=== PATIENT | male | born 1955 | race Two or more races ===

== ENCOUNTER 2024-03-10 10:22 | Emergency (ER) | payer OTHER ==
[~2024-03-10] VITALS: Ht 190.5 cm; Wt 159.1 kg
[2024-03-10 10:55] VITALS: PULSE 92; RESP 12; O2SAT 98
[2024-03-10 11:30] LABS: Alanine Aminotransferase 25 U/L (7-40); Alkaline Phosphatase 87 U/L (46-116); Anion Gap 7 (5-15); BUN/Creatinine Ratio 13.9 (10.0-20.0); Blood Urea Nitrogen 21 mg/dL (9-23); Calcium 10.9 mg/dL (8.5-10.1); Carbon Dioxide 23 mmol/L (20-30); Chloride 110 mmol/L (98-107); Glucose 90 mg/dL (74-106); Magnesium 2.3 mg/dL (1.6-2.6); Potassium 4.4 mmol/L (3.5-5.1); Sodium 140 mmol/L (136-145)
[2024-03-10 11:31] LABS: Albumin 4.1 g/dL (3.2-4.8); Aspartate Aminotransferase 12 U/L (13-40); Bilirubin, Total 1.2 mg/dL (0.2-1.0); Total Protein 6.7 g/dL (5.7-8.2)
[2024-03-10 11:32] LABS: Urine Bacteria None Seen /hpf (None Seen)
[2024-03-10 11:33] LABS: Basophils # (auto) 0 10 ^3/uL (0-0.2); Basophils % (auto) 0.4 % (0.0-2.0); Eosinophils # (auto) 0.2 10 ^3/uL (0-0.8); Hemoglobin 15.2 g/dL (13.5-17.5); Lymphocytes % (auto) 11.6 % (10.0-50.0); Mean Corpuscular Hemoglobin 29.1 pg (28.0-32.0); Mean Corpuscular Hgb Conc. 33.7 g/dL (32.0-36.0); Mean Corpuscular Volume 86.3 fL (80.0-100.0); Monocytes # (auto) 0.9 10 ^3/uL (0-1.3); Monocytes % (auto) 9.9 % (0.0-12.0); Neutrophils # (auto) 6.7 10 ^3/uL (1.6-8.6); Neutrophils % (auto) 76.1 % (37.0-80.0); Nucleated Red Blood Cells % 0.1 %; Red Blood Cells 5.21 10^6/uL (4.5-5.90); Red Cell Distribution Width 14.8 % (11.8-14.3); White Blood Cell 8.7 10^3/uL (4.4-10.8)
[2024-03-10 12:01] LABS: Urine Blood 1+ /uL (Negative); Urine Clarity Clear (Clear); Urine Color Yellow (Yellow); Urine Protein, UAD 1+ (Negative); Urine Specific Gravity 1.014 (1.001-1.035); Urine Urobilinogen Normal (Negative); Urine WBC 19 /hpf (0 - 3); Urine pH 5.5 (5.0-9.0)
[2024-03-10] MEDS: cefTRIAXone 1GM/50ML D5W 50 ML IV ONE (14:17)
[2024-03-10] MEDS: SODIUM CHLORIDE 0.9% 1,000 ML IV ONE ×2 (14:17→18:16)
[2024-03-10 19:55] VITALS: PULSE 90; RESP 14; O2SAT 98
[2024-03-10 20:57] VITALS: BP 103/66; PULSE 69; RESP 14; TEMP 98.7; O2SAT 93
== END 2024-03-10 21:11 | disposition short-term general hospital (02) ==
LOC: ER 10:22 → EDBD 10:22 → ER 21:11
DX: E86.0 Dehydration (principal); N39.0 Urinary tract infection, site not specified; R53.1 Weakness; R42 Dizziness and giddiness; I10 Essential (primary) hypertension; E66.9 Obesity, unspecified; Z68.41 Body mass index [BMI] 40.0-44.9, adult; Z86.73 Personal history of transient ischemic attack (TIA), and cerebral infarction without residual deficits; Z85.9 Personal history of malignant neoplasm, unspecified; Z98.890 Other specified postprocedural states; Z79.899 Other long term (current) drug therapy
CPT/HCPCS: 36415; 70450; 71045; 80053; 81001; 82962; 83605; 83735; 83880; 84484; 85025; 93005; 96361; 96365; 99285; J0696; J7030